=== PATIENT | male | born 1970 | race Caucasian/White ===

== ENCOUNTER 2024-03-12 09:48 | Emergency (ER) | payer OTHER, SELFPAY ==
[2024-03-12 10:13] VITALS: BP 128/81
--- NOTE | 2024-03-12 10:55 | ED.GENMED ---
History of Present Illness
<Derek Li Jr., PA-C - Last Filed: 03/14/24 15:05>
General
Chief Complaint: Fall
Source: patient
Exam Limitations: none
Time Seen by Provider: 03/12/24 10:28
Nursing documentation reviewed up to this point in time: agreed with
History of Present Illness
History of Present Illness:
The patient is a 53-year-old MTF presenting to the emergency department today with concerns of abdominal discomfort after falling off a horse directly on her left side. Ongoing pain to the left side but also concerns of dehiscence to recent
surgical [place] otherwise was healing well until today. Denies any additional concerns no extremity discomfort no head injury no neck pain. No numbness or weakness.
Review of Systems
<Derek Li Jr., PA-C - Last Filed: 03/14/24 15:05>
Review of Systems
Allergies reviewed?: Yes
All Other Systems: ROS reviewed and negative except as documented in HPI and ROS
Phy Exam
<ELEAZAR Mosqueda Jr. Last Filed: 03/14/24 15:05>
Physical Exam
Physical Exam:
GENERAL: Alert , in no apparent distress
EYE: pupils equal and reactive
NECK: Supple, no significant adenopathy.
ENT: o/p clr, mmm.
CARDIAC: Regular rate and rhythm .
LUNGS: Clear breath sounds bilaterally, no acute respiratory distress, no wheezes/rales/rhonchi
ABDOMEN: Dehiscence to surgical incision to the left lateral lower abdomen roughly 10 cm in total length appears to be subcutaneous in depth no drainage. No redness or warmth surrounding. Otherwise some tenderness to the left upper abdomen to
palpation no visible signs of trauma the right side of the abdomen is soft, without focal tenderness, no r/g, no cvat
NEUROLOGICAL: Alert and oriented, no focal neuro deficits
SKIN: Warm and dry, skin intact.
MUSCULOSKELETAL: No edema, well perfused.
PSYCH: Normal and appropriate interaction.
Course
<Derek Li Jr., PA-C - Last Filed: 03/14/24 15:05>
Orders/Labs/Results
Orders:
Orders
03/12/24 10:44
CT Abd/Pel (IV only)-[facility] only Urgent
Comment:
Reason For Exam: fall horse 1hr. left abd pain, dehis left side,
03/12/24 11:20
CBC/With Diff [Complete Blood Count/With Diff] Urgent
CMP [Comprehensive Metabolic Panel] Urgent
Urinalysis Reflex To Culture Urgent
Date Specimen was Collected: 03/12/24
Time Specimen was Collected: 11:08
03/12/24 15:52
Cephalexin Monohydrate [Keflex] 500 mg PO NOW STA
Abnormal Lab Results
03/12/24
11:20
WBC 11.6 H 10^3/uL
(4.8-10.8)
Abs Immat Gran (auto) 0.1 H 10^3/uL
(0-0.05)
Absolute Neuts (auto) 10.2 H 10^3/uL
(1.4-6.5)
Absolute Lymphs (auto) 0.9 L 10^3/uL
(1.2-3.4)
Neutrophils % 87.4 H %
(42.2-75.2)
Lymphocytes % 7.8 L %
(20.5-51.1)
Total Bilirubin 1.5 H mg/dl
(0.2-1.3)
03/12/24 11:20
03/12/24 11:20
Vital Signs
Initial and Last Documented VS:
Initial Vital Signs
Temp Pulse Resp BP Pulse Ox
97.8 F 77 16 128/81 97
03/12/24 10:13 03/12/24 10:13 03/12/24 10:13 03/12/24 10:13 03/12/24 10:13
Last Documented Vital Signs
Temp Pulse Resp BP Pulse Ox
98.0 F 81 16 128/81 98
03/12/24 16:03 03/12/24 16:03 03/12/24 16:03 03/12/24 16:03 03/12/24 16:03
<Kalie Moreno PA-C - Last Filed: 03/12/24 19:13>
Orders/Labs/Results
Orders:
Orders
03/12/24 10:44
CT Abd/Pel (IV only)-[facility] only Urgent
Comment:
Reason For Exam: fall horse 1hr. left abd pain, dehis left side,
03/12/24 11:20
CBC/With Diff [Complete Blood Count/With Diff] Urgent
CMP [Comprehensive Metabolic Panel] Urgent
Urinalysis Reflex To Culture Urgent
Date Specimen was Collected: 03/12/24
Time Specimen was Collected: 11:08
03/12/24 15:52
Cephalexin Monohydrate [Keflex] 500 mg PO NOW STA
Abnormal Lab Results
03/12/24
11:20
WBC 11.6 H 10^3/uL
(4.8-10.8)
Abs Immat Gran (auto) 0.1 H 10^3/uL
(0-0.05)
Absolute Neuts (auto) 10.2 H 10^3/uL
(1.4-6.5)
Absolute Lymphs (auto) 0.9 L 10^3/uL
(1.2-3.4)
Neutrophils % 87.4 H %
(42.2-75.2)
Lymphocytes % 7.8 L %
(20.5-51.1)
Total Bilirubin 1.5 H mg/dl
(0.2-1.3)
03/12/24 11:20
03/12/24 11:20
Vital Signs
Initial and Last Documented VS:
Initial Vital Signs
Temp Pulse Resp BP Pulse Ox
97.8 F 77 16 128/81 97
03/12/24 10:13 03/12/24 10:13 03/12/24 10:13 03/12/24 10:13 03/12/24 10:13
Last Documented Vital Signs
Temp Pulse Resp BP Pulse Ox
98.0 F 81 16 128/81 98
03/12/24 16:03 03/12/24 16:03 03/12/24 16:03 03/12/24 16:03 03/12/24 16:03
Procedures
<Kalie Moreno PA-C - Last Filed: 03/12/24 19:13>
Laceration Closure
Left Lower Lateral Abdomen:
Status of Wound: clean
Size of Wound in cm: 10
Description of Wound Edges: sharp
Preparation: cleaned with saline
Anesthesia: 1% Lidocaine with epi
Revision/Debridement: routine- no revision
Wound exploration: explored to base- no FB
Type of Closure: layered closure and interrupted sutures (16)
Skin Closure Material: 3-0 nylon
Number of sutures: 16
Additional information:
Layered closure with 3-0 Vicryl and 16 simple interrupted 3-0 Vicryl
<Derek Li Jr., PA-C - Last Filed: 03/14/24 15:05>
MDM/Problems Addressed
MDM/Problems Addressed:
53-year-old male presenting to the emergency department today with concerns of left lower quadrant abdominal pain as well as left upper quadrant abdominal pain after falling off a horse 1 hour prior to arrival. Also with dehiscence to his surgical
incision from abdominal plasty that was performed several weeks ago. No signs of additional trauma no head or neck pain no extremity discomfort. CT scan performed to ensure no deeper space injuries. There is no evidence of internal injury.
Opening of the previous incision, dehiscence appears to be localized and superficial. Plan to close outpatient follow-up with general surgery. Otherwise stable throughout ER stay. Return precautions given.
<Kalie Moreno PA-C - Last Filed: 03/12/24 19:13>
*Critical Care Note
Total Time (30-74mins, 75-104mins- exclusive of procedures): Not Applicable
<Kalie Moreno PA-C - Last Filed: 03/12/24 19:13>
Update Note
Update Note:
Update: CT report reviewed. No acute abnormalities. Laceration of left lateral lower abdomen closed with layered closure. Wound edges well-approximated. Bleeding well-controlled. Patient tolerated procedure well. Patient's tetanus shot
up-to-date dressing placed over wound. Patient will follow closely with general surgery/plastic surgery. Will initiate course of Keflex given risk of infection. Wound care instructions/signs of infection discussed at length. Advised against any
heavy lifting/strenuous activities. Patient stable for discharge. All questions answered.
ED Attending Note
<Derek Li Jr., PA-C - Last Filed: 03/14/24 15:05>
-
Portions of this chart may have been created with voice recognition software.� Occasional wrong word or��sound alike� substitutions may have occurred due to the inherent limitations of voice recognition software.
Discharge Plan
Departure
Patient Disposition: Home (Routine Discharge)
Date of Disposition: 03/12/24
Time of Disposition: 15:55
Patient with high blood pressure during this ER visit?: No
Condition: Good
Covid-19: Not Applicable
Discharge Problem:
Dehiscence of surgical wound
Instructions: Wound Care (DC), Laceration Repair With Stitches (DC), BLOOD PRESSURE
Prescriptions:
New
cephalexin 500 mg capsule
500 mg PO QID 7 Days Qty: 28 0RF
Referrals:
Marcelo Allan MD [Active] - Follow up in 5-7 days
NONE,* [Family Provider] -
Activity Restrictions/Additional Instructions:
You came to the emergency department today with concerns of dehiscence to wound to her left lower abdomen. Here in reassuring assessment otherwise you had sutures placed please follow-up closely with general surgery for further management.
-As discussed/it is important to monitor closely for any signs of infection including significant redness, swelling, or pain around wound, red streaking away from wound, pus draining from wound, fevers, etc. a prescription for antibiotic has been
sent to your pharmacy. You should take this 4 times a day for the next week.
-You should keep wound clean and dry. Limit any extra strain on abdomen. Do not lift any heavy objects until cleared by surgery.
Return to the emergency department any worsening, new or concerning symptoms.
Interventions
Interventions:
*Risk Screen - Suicide Last Done: 03/12/24 12:13
*General Assessment Last Done: 03/12/24 12:13
*Neglect/Abuse Screening Last Done: 03/12/24 12:13
ED- Fall Risk Assessment Last Done: 03/12/24 12:14
*ED COVID-19 Vaccine History Last Done: 03/12/24 12:13
*Nursing Disposition Last Done: 03/12/24 16:03
ED-Musculoskeletal Assessment Last Done: 03/12/24 14:38
ED- Neurological Assessment Last Done: 03/12/24 12:14
ED-Skin Assessment Last Done: 03/12/24 12:14
Discharge Date and Time
Discharge Date/Time: 03/12/24 16:04
Print Language: MAORI
[2024-03-12 11:32] LABS: % Basophils 0.2 % (0-2); % Eosinophils 0.3 % (0-6); % Immature Granulocytes 0.4 % (0-0.5); % Lymphocytes 7.8 % (20.5-51.1); % Monocytes 3.9 % (1.7-9.3); % Neutrophils 87.4 % (42.2-75.2); Absolute Immature Granulocytes 0.1 10^3/uL (0-0.05); Absolute Lymphocytes 0.9 10^3/uL (1.2-3.4); Absolute Monocytes 0.5 10^3/uL (0.1-0.6); Absolute Neutrophils 10.2 10^3/uL (1.4-6.5); Hematocrit 42.7 % (39.0-52.0); Hemoglobin 14.4 g/dL (13.0-18.0); Mean Corp Hgb Conc. 33.7 g/dL (33.0-37.0); Mean Corpuscular Hgb 28.9 pg (27.0-31.0); Mean Corpuscular Volume 85.6 fL (80.0-94.0); Mean Platelet Volume 10.2 fL (7.4-10.4); Nucleated Red Blood Cells % 0 % (-); Platelet Count 291 10^3/uL (130-400); Red Blood Cell Count 4.99 10^6/uL (4.70-6.10); Red Cell Dist. Width 13.2 % (11.5-14.5); White Blood Cell Count 11.6 10^3/uL (4.8-10.8)
[2024-03-12 11:37] LABS: Urine Albumin Trace (Neg - Trace); Urine Bilirubin Negative (Negative); Urine Character Clear (Clear); Urine Color Amber; Urine Glucose Negative (Negative); Urine Ketone Negative (Negative); Urine Leukocyte Negative (Negative); Urine Nitrite Negative (Negative); Urine Occult Blood Negative (Negative); Urine Urobilinogen Negative (Neg - 1+)
[2024-03-12 11:40] LABS: ALT (SGPT) 20 U/L (0-50); AST (SGOT) 30 U/L (17-59); Albumin 4.9 g/dl (3.5-5.0); Alkaline Phosphatase 46 U/L (38-126); Blood Urea Nitrogen 19 mg/dl (9-20); Calcium 10.2 mg/dl (8.4-10.2); Carbon Dioxide 25 mmol/L (22-30); Chloride 104 mmol/L (98-107); Glucose 82 mg/dl (70-99); Potassium 4.8 mmol/L (3.5-5.1); Sodium 140 mmol/L (135-145); Total Bilirubin 1.5 mg/dl (0.2-1.3); Total Protein 8.1 g/dl (6.3-8.2); eGFR > 60.00
[2024-03-12 12:12] VITALS: BMI 27.3
[2024-03-12 12:57] VITALS: BP 126/80
[2024-03-12 13:00] VITALS: BP 125/80
[2024-03-12 14:00] VITALS: BP 114/83
[2024-03-12 15:00] VITALS: BP 127/97
[2024-03-12 16:03] VITALS: BP 128/81
[2024-03-12] MEDS: KEFLEX 500 MG PO (16:14)
== END 2024-03-12 16:04 | disposition home or self-care (01) ==
LOC: EMR 09:48
PROVIDERS: Physician Assistant; EMERGENCY PHYSICIAN Emergency Medicine
DX: T81.31XA Disruption of external operation (surgical) wound, not elsewhere classified, initial encounter (principal); X58.XXXA Exposure to other specified factors, initial encounter
CPT/HCPCS: 99284; 12034; 74177; 80053; 81003; 85025; Q9967